=== PATIENT | female | born 1950 | race Caucasian/White ===

== ENCOUNTER 2016-11-09 08:10 | Emergency (ER) | payer MEDICARE ==
[~2016-11-09] VITALS: Ht 154.9 cm; Wt 57.0 kg
[~2016-11-09 08:10] MED LIST: CEFD300C2 PO; FOLI0.4T2 PO; MAGN300C PO; MAGN400T26 PO; MULT1TAB60 PO; POTA20TA14 PO; Thiamine Hcl PO
[2016-11-09] MEDS ORDERED: HYDROcodone/APAP 5/325 TABLET PO ONE (08:30)
[2016-11-09] MEDS ORDERED: HYDROcodone/APAP 5/325 TABLET ONE (08:48)
[2016-11-09 09:40] VITALS: BP 153/85
== END 2016-11-09 09:54 | disposition home or self-care (01) ==
LOC: ED 09:13
DX: S92.342A Displaced fracture of fourth metatarsal bone, left foot, initial encounter for closed fracture (principal); S92.352A Displaced fracture of fifth metatarsal bone, left foot, initial encounter for closed fracture; J44.9 Chronic obstructive pulmonary disease, unspecified; M54.9 Dorsalgia, unspecified; G89.29 Other chronic pain; X58.XXXA Exposure to other specified factors, initial encounter; Y93.89 Activity, other specified; Y99.8 Other external cause status; Y92.89 Other specified places as the place of occurrence of the external cause
CPT/HCPCS: 99284